=== PATIENT | female | born 1975 | race Caucasian/White ===

== ENCOUNTER 2025-04-28 17:19 | Emergency (ER) | payer BC, SELFPAY ==
[2025-04-28 17:25] VITALS: BP 116/81
--- NOTE | 2025-04-28 21:01 | ED.MUSCINJ ---
HPI-Injury
General
Chief Complaint: Musculo-Skeletal Complaint
Source: patient
Exam Limitations: none
Time Seen by Provider: 04/28/25 21:00
Nursing documentation reviewed up to this point in time: agreed with
History of Present Illness-Injury
Initial Injury comments:
50-year-old female with history of MS states her right shoulder area started bothering her about a week ago, no recollection of overuse or injury. The pain has gradually increased and today it was is worse. She cannot move it in either direction
without significant pain. She took ibuprofen twice without any relief.
Past History
Past History
ED Past Medical History: Cancer (Thyroid cancer) and Other (MS)
ED Past Surgical History: , Gynecological and Other (Thyroidectomy)
Social History
Tobacco: Non-smoker
Alcohol: None
Personal:
Living: with family
Employment: Not employed
Review of Systems
Review of Systems
Allergies reviewed?: Yes
All Other Systems: ROS reviewed and negative except as documented in HPI and ROS
Phy Exam
Physical Exam
Physical Exam:
GENERAL: No acute distress. A&Ox3.
CONSTITUTIONAL: Afebrile.
RESPIRATORY: Regular respirations, nonlabored, lungs clear.
CARDIOVASCULAR: Regular rate and rhythm, no murmurs, no rubs.
GI: Soft, nontender, normal BS
MUSCULOSKELETAL: Tender to palpate about the shoulder mostly anteriorly and laterally. Significantly limited range of motion due to pain. Normal radial pulse. Distal neurovascular intact. Well perfused.
SKIN: Warm, dry, pink
PSYCH: Normal mood and affect. Well kept, interactive and appropriate
NEUROLOGIC: Awake, alert and oriented. No focal neurological deficits
Injury Course
Orders/Labs/Results
Orders:
Orders
04/28/25 17:28
Shoulder, Right, Trauma [CR Shoulder, Trauma - Right] Urgent
Comment:
Reason For Exam: pain
04/28/25 21:19
Dexamethasone [Decadron] 10 mg PO NOW STA
MDM/Problems Addressed
Differential Diagnosis Includes:
tendinitis, bursitis, arthritis
MDM/Problems Addressed:
50-year-old female with history of MS states her right shoulder area started bothering her about a week ago, no recollection of overuse or injury. The pain has gradually increased and today it was is worse. She cannot move it in either direction
without significant pain. She took ibuprofen twice without any relief.
X-ray right shoulder initially read by this examiner reveals no significant abnormality, radiology report read: Mild AC joint and glenohumeral joint osteoarthritis.
Patient has significant limited range of motion
Plan: Treat for bursitis, Decadron here tonight and short burst of steroids
She did make an appointment to see an orthopedic doctor at [facility] tomorrow.
*Pulse Oximetry
SaO2: 93
Oxygen Mode of Delivery: Room air
Patient hypoxic: not evaluated
*Critical Care Note
Total Time (30-74mins, 75-104mins- exclusive of procedures): Not Applicable
ED Attending Note
-
Portions of this chart may have been created with voice recognition software.� Occasional wrong word or��sound alike� substitutions may have occurred due to the inherent limitations of voice recognition software.
Discharge Plan
Departure
Patient Disposition: Home (Routine Discharge)
Date of Disposition: 04/28/25
Time of Disposition: :23
Patient with high blood pressure during this ER visit?: No
Condition: Good
Discharge Problem:
Pain of right shoulder region
Instructions: Prednisone, Shoulder pain - ED (DC), Bursitis - ED (DC)
Prescriptions:
New
prednisone 20 mg tablet
40 mg PO DAILY Qty: 8 0RF
Referrals:
[facility] orthopedics [Other] - Keep scheduled appt
Rico Razo MD [Family Provider, Family Practice]
Activity Restrictions/Additional Instructions:
As we discussed, you were given Decadron 10 mg, a steroid here tonight for inflammation.
I sent a prescription to your pharmacy for prednisone 40 mg a day for the next 4 days
You may take Tylenol or ibuprofen if needed for pain
Keep your appointment tomorrow with your orthopedic doctor
Interventions
Interventions:
*Risk Screen - Suicide Last Done: 04/28/25 17:25
*General Assessment Last Done: 04/28/25 17:25
*Neglect/Abuse Screening Last Done: 04/28/25 17:25
*Nursing Disposition Last Done: 04/28/25 21:34
ED-Musculoskeletal Assessment Last Done: 04/28/25 20:30
Discharge Date and Time
Discharge Date/Time: 04/28/25 21:34
Print Language: URDU
[2025-04-28] MEDS: DECADRON 10 MG PO (21:24)
== END 2025-04-28 21:34 | disposition home or self-care (01) ==
LOC: EMR 17:19
PROVIDERS: EMERGENCY PHYSICIAN Emergency Medicine; FAMILY PHYSICIAN Family Medicine
DX: M25.511 Pain in right shoulder (principal); G35 Multiple sclerosis; E89.0 Postprocedural hypothyroidism; Z85.850 Personal history of malignant neoplasm of thyroid
CPT/HCPCS: 99283; 73030

== ENCOUNTER 2025-07-24 06:22 | Day surgery (SDC) | payer BC, SELFPAY | END 2025-07-24 13:23 | disposition home or self-care (01) | LOC: GI 06:22 | PROVIDERS: ATTENDING PHYSICIAN Internal Medicine | DX: Z12.11 Encounter for screening for malignant neoplasm of colon (principal); R19.5 Other fecal abnormalities; K64.8 Other hemorrhoids; K63.5 Polyp of colon; K62.1 Rectal polyp; Z83.719 Family history of colon polyps, unspecified | CPT/HCPCS: 45380; 88305 ==